=== PATIENT | male | born 1935 | race Caucasian/White ===

== ENCOUNTER 2022-04-01 17:04 | Inpatient (IN) | payer MEDICARE ==
[~2022-04-01] VITALS: Ht 170.2 cm; Wt 86.2 kg
[2022-04-01] MEDS ORDERED: SODIUM CHLORIDE 0.9% 1000ML 1,000 ML IV STA (17:31)
[2022-04-01 17:48] LABS: BASOPHILS % 0.3 % (0.0-1.0); EOSINOPHILS # (AUTO) 0.2 (0.0-0.4); EOSINOPHILS % 1.4 % (0.0-6.0); HEMATOCRIT 47.1 % (38.2-49.6); HEMOGLOBIN 14.3 g/dL (14.0-18.0); LYMPHOCYTES # (AUTO) 1.9 (1.0-3.2); LYMPHOCYTES % 15.8 % (18.0-39.1); MEAN CORPUSCULAR HEMOGLOBIN 30.4 pg (28-32); MEAN CORPUSCULAR HGB CONC 30.4 g/dL (31-35); MEAN CORPUSCULAR VOLUME 100.2 fL (81-99); MONOCYTES % 8.1 % (4.4-11.3); NEUTROPHILS # (AUTO) 8.9 (2.1-6.9); NEUTROPHILS % 74.1 % (38.7-80.0); PLATELET COUNT 328 x10e3/uL (140-360); RED CELL DISTRIBUTION WIDTH 12.9 % (11.7-14.4)
[2022-04-01] MEDS: ONDANSETRON HCL INJ 2MG/ML 2ML 2 MG/ML VIAL IV PRN (18:02)
[2022-04-01 18:08] LABS: ALBUMIN 3.5 g/dL (3.5-5.0); ALBUMIN/GLOBULIN RATIO 0.9 (0.8-2.0); ANION GAP 14.6 mmol/L (8-16); CALCIUM 9.6 mg/dL (8.4-10.2); CREATININE, SERUM 1.27 mg/dL (0.72-1.25); POTASSIUM 4.6 mmol/L (3.5-5.1)
[2022-04-01] MEDS ORDERED: Morphine 4mg INJECTION 4 MG/ML INJ IV STA (18:09)
[2022-04-01] MEDS ORDERED: ONDANSETRON HCL INJ 2MG/ML 2ML 2 MG/ML VIAL IV STA (18:22)
[2022-04-01] MEDS ORDERED: IOPAMIDOL 370 MG/ML 100 ML INFUS..BTL INJ ONE (18:25)
[2022-04-01] MEDS ORDERED: Morphine 4mg INJECTION 4 MG/ML INJ IV ONE (18:30)
[2022-04-01] MEDS ORDERED: Morphine 4mg INJECTION 4 MG/ML INJ IV PRN (19:15)
[2022-04-01] MEDS ORDERED: ONDANSETRON HCL INJ 2MG/ML 2ML 2 MG/ML VIAL IV PRN (19:15)
[2022-04-01] MEDS ORDERED: ACETAMINOPHEN 325 MG SUPP PR PRN (19:30)
[2022-04-01] MEDS ORDERED: HYDRALAZINE HCL 20 MG/ML VIAL IV PRN (19:30)
[2022-04-01 19:42] LABS: CLARITY,URINE CLEAR (CLEAR); COLOR,URINE YELLOW (YELLOW); KETONES,URINE 1+ (NEGATIVE); LEUKOCYTE ESTERASE ,URINE NEGATIVE (NEGATIVE); NITRITE,URINE NEGATIVE (NEGATIVE); PROTEIN,URINE DIPSTICK NEGATIVE (NEGATIVE); URINE UROBILINOGEN 0.2 mg/dL (0.2 - 1)
[2022-04-01] MEDS ORDERED: BENZOCAINE/TETRACAINE/BUTAMBEN AERO SPRAY 56 GM CAN TOP ONE (19:45)
[2022-04-01 19:52] LABS: BACTERIA,URINE RARE /HPF; RBC,URINE 21-50 /HPF (0-5)
[2022-04-01] MEDS: METRONIDAZOLE 500MG/NS 100ML 100 ML IV SCH (20:37)
[2022-04-01] MEDS: SODIUM CHLORIDE 0.9% 1000ML 1,000 ML IV SCH (20:37)
[2022-04-01 21:43] VITALS: BP 145/71
[2022-04-01 21:44] VITALS: BP 145/71
[2022-04-01 22:35] VITALS: BP 145/71
[2022-04-01] MEDS: SODIUM CHLORIDE 0.9% 250ML IRRIG IR SCH ×2 (23:15→23:33)
[2022-04-02] MEDS: SODIUM CHLORIDE 0.9% 250ML IRRIG IR SCH ×4 (03:30→15:15)
[2022-04-02] MEDS: ONDANSETRON HCL INJ 2MG/ML 2ML 2 MG/ML VIAL IV PRN (04:18)
[2022-04-02 04:49] LABS: BASOPHILS # (AUTO) 0.1 (0.0-0.1); BASOPHILS % 0.5 % (0.0-1.0); EOSINOPHILS # (AUTO) 0.1 (0.0-0.4); EOSINOPHILS % 1.1 % (0.0-6.0); HEMATOCRIT 43.2 % (38.2-49.6); HEMOGLOBIN 13.1 g/dL (14.0-18.0); LYMPHOCYTES # (AUTO) 1.6 (1.0-3.2); LYMPHOCYTES % 15.5 % (18.0-39.1); MEAN CORPUSCULAR HEMOGLOBIN 30.5 pg (28-32); MEAN CORPUSCULAR HGB CONC 30.3 g/dL (31-35); MEAN CORPUSCULAR VOLUME 100.7 fL (81-99); MONOCYTES # (AUTO) 0.9 (0.2-0.8); MONOCYTES % 8.6 % (4.4-11.3); NEUTROPHILS # (AUTO) 7.8 (2.1-6.9); PLATELET COUNT 294 x10e3/uL (140-360); RED BLOOD COUNT 4.29 x10e6/uL (4.3-5.7); RED CELL DISTRIBUTION WIDTH 13.2 % (11.7-14.4)
[2022-04-02 05:07] LABS: ANION GAP 13.3 mmol/L (8-16); CALCIUM 8.8 mg/dL (8.4-10.2); CREATININE, SERUM 1.13 mg/dL (0.72-1.25); POTASSIUM 4.3 mmol/L (3.5-5.1)
[2022-04-02] MEDS: SODIUM CHLORIDE 0.9% 1000ML 1,000 ML IV SCH ×3 (05:26→21:03)
[2022-04-02 08:44] VITALS: BP 116/74
[2022-04-02 08:45] VITALS: BP 116/74
[2022-04-02] MEDS: METRONIDAZOLE 500MG/NS 100ML 100 ML IV SCH ×2 (09:04→21:02)
[2022-04-02 11:37] VITALS: BP 139/66
[2022-04-02] MEDS ORDERED: BISACODYL 10 MG SUPP PR ONE (12:00)
[2022-04-02 12:49] LABS: INR 1.08; PROTHROMBIN TIME 14.2 seconds (11.9-14.5)
[2022-04-02] MEDS: HYDROMORPHONE 1MG/1ML INJ IV PRN (13:20)
[2022-04-02 15:50] VITALS: BP 134/68
[2022-04-02 20:00] VITALS: BP 134/68
[2022-04-02 20:38] VITALS: BP 132/66
[2022-04-02] MEDS: BISACODYL 10 MG SUPP PR SCH (21:02)
[2022-04-03] VITALS (7 sets, daily range): BP systolic 118–145; BP diastolic 56–66
[2022-04-03] MEDS: SODIUM CHLORIDE 0.9% 1000ML 1,000 ML IV SCH ×3 (03:15→19:15)
[2022-04-03 04:54] LABS: BASOPHILS # (AUTO) 0.1 (0.0-0.1); BASOPHILS % 0.6 % (0.0-1.0); EOSINOPHILS % 0.5 % (0.0-6.0); HEMATOCRIT 40.1 % (38.2-49.6); HEMOGLOBIN 13.2 g/dL (14.0-18.0); LYMPHOCYTES # (AUTO) 0.9 (1.0-3.2); LYMPHOCYTES % 10.5 % (18.0-39.1); MEAN CORPUSCULAR HEMOGLOBIN 31.1 pg (28-32); MEAN CORPUSCULAR HGB CONC 32.9 g/dL (31-35); MEAN CORPUSCULAR VOLUME 94.6 fL (81-99); MONOCYTES # (AUTO) 1.1 (0.2-0.8); MONOCYTES % 12.3 % (4.4-11.3); NEUTROPHILS # (AUTO) 6.5 (2.1-6.9); NEUTROPHILS % 75.7 % (38.7-80.0); PLATELET COUNT 300 x10e3/uL (140-360); RED BLOOD COUNT 4.24 x10e6/uL (4.3-5.7)
[2022-04-03 05:14] LABS: ALBUMIN 2.6 g/dL (3.5-5.0); ALBUMIN/GLOBULIN RATIO 0.7 (0.8-2.0); ANION GAP 13.6 mmol/L (8-16); CALCIUM 8.6 mg/dL (8.4-10.2); CREATININE, SERUM 1.13 mg/dL (0.72-1.25); POTASSIUM 4.6 mmol/L (3.5-5.1)
[2022-04-03] MEDS: SODIUM CHLORIDE 0.9% 250ML IRRIG IR SCH ×5 (07:15→23:15)
[2022-04-03] MEDS: METRONIDAZOLE 500MG/NS 100ML 100 ML IV SCH ×2 (08:49→20:56)
[2022-04-03] MEDS: BISACODYL 10 MG SUPP PR SCH (08:50)
[2022-04-04] VITALS (8 sets, daily range): BP systolic 104–150; BP diastolic 65–87
[2022-04-04] MEDS: SODIUM CHLORIDE 0.9% 250ML IRRIG IR SCH ×5 (03:15→19:15)
[2022-04-04] MEDS: SODIUM CHLORIDE 0.9% 1000ML 1,000 ML IV SCH ×2 (03:15→08:30)
[2022-04-04] MEDS: METRONIDAZOLE 500MG/NS 100ML 100 ML IV SCH ×2 (08:30→20:55)
[2022-04-04] MEDS ORDERED: BISACODYL 10 MG SUPP PR ONE (10:30)
[2022-04-04] MEDS: BISACODYL 10 MG SUPP PR SCH (20:55)
[2022-04-05] VITALS (7 sets, daily range): BP systolic 115–143; BP diastolic 57–69
[2022-04-05] MEDS: SODIUM CHLORIDE 0.9% 1000ML 1,000 ML IV SCH ×3 (03:15→12:01)
[2022-04-05 07:25] LABS: BASOPHILS % 0.3 % (0.0-1.0); EOSINOPHILS # (AUTO) 0.1 (0.0-0.4); EOSINOPHILS % 1.5 % (0.0-6.0); HEMATOCRIT 42.1 % (38.2-49.6); HEMOGLOBIN 12.7 g/dL (14.0-18.0); LYMPHOCYTES # (AUTO) 1.4 (1.0-3.2); LYMPHOCYTES % 15.7 % (18.0-39.1); MEAN CORPUSCULAR HEMOGLOBIN 30.4 pg (28-32); MEAN CORPUSCULAR HGB CONC 30.2 g/dL (31-35); MEAN CORPUSCULAR VOLUME 100.7 fL (81-99); MONOCYTES # (AUTO) 1.2 (0.2-0.8); MONOCYTES % 12.9 % (4.4-11.3); NEUTROPHILS # (AUTO) 6.2 (2.1-6.9); NEUTROPHILS % 69.3 % (38.7-80.0); PLATELET COUNT 301 x10e3/uL (140-360); RED BLOOD COUNT 4.18 x10e6/uL (4.3-5.7); RED CELL DISTRIBUTION WIDTH 13.2 % (11.7-14.4)
[2022-04-05 07:54] LABS: ALBUMIN 2.8 g/dL (3.5-5.0); ALBUMIN/GLOBULIN RATIO 0.8 (0.8-2.0); CALCIUM 8.6 mg/dL (8.4-10.2); CREATININE, SERUM 1.01 mg/dL (0.72-1.25)
[2022-04-05] MEDS: BISACODYL 10 MG SUPP PR SCH (08:46)
[2022-04-05] MEDS: METRONIDAZOLE 500MG/NS 100ML 100 ML IV SCH ×2 (08:47→21:21)
[2022-04-05] MEDS: SODIUM CHLORIDE 0.9% 250ML IRRIG IR SCH (16:51)
[2022-04-05] MEDS: DEXTROSE 5%/0.45% SOD CHL 1,000 ML IV SCH (17:19)
[2022-04-05] MEDS: HYDROMORPHONE 1MG/1ML INJ IV PRN (17:29)
[2022-04-06] VITALS (8 sets, daily range): BP systolic 101–126; BP diastolic 50–89
[2022-04-06] MEDS: DEXTROSE 5%/0.45% SOD CHL 1,000 ML IV SCH ×2 (04:25→10:43)
[2022-04-06] MEDS: METRONIDAZOLE 500MG/NS 100ML 100 ML IV SCH ×2 (08:53→20:22)
[2022-04-06] MEDS: HYDROMORPHONE 1MG/1ML INJ IV PRN ×2 (10:38→17:06)
[2022-04-06] MEDS: ONDANSETRON HCL INJ 2MG/ML 2ML 2 MG/ML VIAL IV PRN ×2 (10:38→15:36)
[2022-04-06] MEDS ORDERED: FAMOTIDINE 20 MG/2 ML VIAL IV SCH (17:00)
[2022-04-06] MEDS ORDERED: HEPARIN SOD (PORCINE) 5,000 UNIT/ML VIAL SC SCH (21:00)
== END 2022-04-06 22:09 | disposition short-term general hospital (02) | DRG 389 ==
LOC: ER 17:09 → ERHOLD 19:10 → MED/SURG 21:30
PROVIDERS: ADMIT Internal Medicine; ATTEND Internal Medicine
DX: K56.50 Intestinal adhesions [bands], unspecified as to partial versus complete obstruction (principal); N17.9 Acute kidney failure, unspecified; I10 Essential (primary) hypertension; E78.00 Pure hypercholesterolemia, unspecified; I25.10 Atherosclerotic heart disease of native coronary artery without angina pectoris; Z85.038 Personal history of other malignant neoplasm of large intestine; Z90.49 Acquired absence of other specified parts of digestive tract; Z88.0 Allergy status to penicillin; Z98.890 Other specified postprocedural states
CPT/HCPCS: 36415; 74018; 74022; 74177; 80048; 80053; 81001; 83690; 85025; 85610; 99252; 99284; J1170; J1644; J2270; J2405; J7030; Q9967